=== PATIENT | female | born 1960 | race Caucasian/White ===

== ENCOUNTER → 2016-12-08 | Day surgery (SDC) | payer OTHER ==
[~2016-12-08] VITALS: Ht 157.5 cm; Wt 80.7 kg
[~2016-12-08] MED LIST: LOSA25TA21 PO; METO25TA99 PO; OMEP20CA11 PO; Sodium Chloride LOK Flush 10 mL Syringe IV PRN; TRAZ-115 PO; fentaNYL-PF 50 mCg/mL 2 mL Inj IVPUSH PRN
[2016-12-08 07:58] VITALS: BP 144/80; PULSE 98; RESP 20; O2SAT 99
[2016-12-08] MEDS: 0.9% Sodium Chloride 1,000 ML IV SCH ×2 (08:40→08:55)
[2016-12-08 09:12] VITALS: BP 116/67; PULSE 74; RESP 15; O2SAT 94
[2016-12-08 09:22] VITALS: BP 89/55; PULSE 77; RESP 15; O2SAT 98
[2016-12-08 09:32] VITALS: BP 101/53; PULSE 88; RESP 15; O2SAT 96
--- NOTE | 2016-12-08 09:36 | ENDO ---
[address] [address] ENDOSCOPY PROCEDURE PATIENT: NELIDA VIDAL : 1960 MR#: [id number] ADMIT: 12/08/2016 JOB ID: [id number] DATE: 12/08/2016 PROCEDURE: Colonoscopy with cold forceps polypectomy. INDICATIONS: A 56-year-old female who reports for colon cancer screening. EQUIPMENT: PCF-H180AL. SEDATION: 1. Versed 5 mg. 2. Fentanyl 100 mcg. COMPLICATIONS: None identified. BOWEL PREP: Very adequate. PROCEDURE INFO: After the risks and benefits were explained, written and verbal informed consent was obtained. The patient was brought into the endoscopy suite and placed into the left lateral decubitus position. Sedation was achieved using the above stated medications with the addition of oxygen via nasal cannula. A digital rectal examination was accomplished. No significant pathology apart from some mild internal external nonbleeding, non-thrombosed hemorrhoids. The scope was introduced into the rectum and advanced to the cecum as identified by the appendiceal orifice and ileocecal valve. The scope was slowly withdrawn to carefully examine the mucosa for any defects or lesions. Retroflexed views were avoided in the rectum. Multiple direct views were made through the dentate line for exclusion of pathology. The colon was decompressed. The scope removed from the patient who tolerated the procedure well. FINDINGS: There was a diminutive polyp in the sigmoid colon removed with cold forceps. The patient had fairly extensive small and medium-sized diverticula of the sigmoid region. No other significant pathology was appreciated throughout. ENDOSCOPIC DIAGNOSES: 1. Colon polyps. 2. Diverticulosis. 3. Hemorrhoids. RECOMMENDATIONS: 1. Await histopathology. 2. Repeat colonoscopy in five years if this is confirmed adenoma.
[2016-12-08 09:54] VITALS: BP 108/56; PULSE 66; RESP 15; O2SAT 100
--- NOTE | 2016-12-09 17:37 | PATH ---
SURGICAL PATHOLOGY Attending Physician:Leia Silva CASE STATUS: Signed Out PATIENT NAME: NELIDA VIDAL PID: [id number] : 1960 DATE COLLECTED:12/08/2016 15:24 SPECIMEN: Colon, Polyp CLINICAL HISTORY: 1). SIGMOID COLON POLYP FINAL DIAGNOSIS: 1.SIGMOID COLON POLYP: TUBULAR ADENOMA. ICD10 D12.6 GROSS DESCRIPTION: The specimen is received in one formalin filled container labeled with the patient's name, sublabeled "sigmoid colon polyp" and consists of a 0.2 x 0.2 x 0.1 CM portion of tissue which is entirely submitted in one cassette. 12/08/2016DC MICRO DESCRIPTION: See diagnosis. ICD-9 CODES: CPT CODES: 1: 20930 Electronically Signed Out Daljit Renner MD [facility], [place] [address] Technical component performed at [facility], [address] [place] [address] Ave[address], [place], [address]
== END | disposition home or self-care (01) ==
LOC: END 00:01
PROVIDERS: ATTEND Internal Medicine Gastroenterology
DX: Z12.11 Encounter for screening for malignant neoplasm of colon (principal); D12.5 Benign neoplasm of sigmoid colon; K64.9 Unspecified hemorrhoids; K57.30 Diverticulosis of large intestine without perforation or abscess without bleeding; I10 Essential (primary) hypertension; E78.5 Hyperlipidemia, unspecified; M19.90 Unspecified osteoarthritis, unspecified site; K21.9 Gastro-esophageal reflux disease without esophagitis; R94.6 Abnormal results of thyroid function studies; D69.6 Thrombocytopenia, unspecified; E78.00 Pure hypercholesterolemia, unspecified; Z87.891 Personal history of nicotine dependence
CPT/HCPCS: 45380; G0500; J2250; J3010; J7030